=== PATIENT | male | born 1950 | race Caucasian/White ===

== ENCOUNTER 2016-10-12 06:01 | Emergency (ER) | payer OTHER, MEDICAID ==
[~2016-10-12] VITALS: Ht 149.9 cm; Wt 60.0 kg
[2016-10-12] MEDS ORDERED: SODIUM CHLORIDE 0.9% 1,000 ML IV ONE (07:05)
[2016-10-12] MEDS ORDERED: DILTIAZEM HCL 60MG TABLET PO ONE (07:15)
[2016-10-12] MEDS ORDERED: DILTIAZEM HCL 5MG/ML 5ML VIAL IV PRN (07:15)
[2016-10-12 07:30] LABS: BASOPHILS % 0.8 % (0.0-2.0); EOSINOPHILS % 2.6 % (0.0-5.0); HEMATOCRIT. 45.5 % (42.0-52.0); HEMOGLOBIN. 15.8 g/dL (14.0-18.0); LYMPHOCYTES % 25.3 % (20.0-50.0); MEAN CORPUSCULAR HEMOGLOBIN 31.9 pg (28.0-32.0); MONOCYTES % 13.8 % (2.0-8.0); NEUTROPHILS % 57.5 % (40.0-76.0); PLATELET 245 x1000/uL (130-400); RED BLOOD CELL COUNT 4.95 mill/uL (4.7-6.1); RED CELL DISTRIBUTION WIDTH 14.5 % (11.6-14.6)
[2016-10-12 07:47] LABS: CARBON DIOXIDE 24 mEq/L (21-32); CHLORIDE 97 mEq/L (98-107); ETHANOL BLOOD < 10 mg/dL
[2016-10-12 07:57] LABS: TROPONIN I < 0.02 ng/mL (0.00-0.04)
[2016-10-12 08:06] LABS: INR 1.1; PROTHROMBIN TIME 11.2 sec
[2016-10-12 10:28] VITALS: BP 128/67
== END 2016-10-12 10:45 | disposition home or self-care (01) ==
LOC: ER 06:01
DX: I48.91 Unspecified atrial fibrillation (principal); E78.00 Pure hypercholesterolemia, unspecified; I10 Essential (primary) hypertension
CPT/HCPCS: 36415; 71010; 80053; 83880; 84484; 85025; 85610; 93005; 96361; 96374; 99285; G0482; J3490; J7030

== ENCOUNTER 2017-01-15 16:17 | Emergency (ER) | payer OTHER, MEDICAID ==
[~2017-01-15] VITALS: Ht 149.9 cm; Wt 64.0 kg
[2017-01-15 16:22] VITALS: BP 172/96
== END 2017-01-15 18:29 | disposition left against medical advice (07) ==
LOC: ER 16:17
DX: R42 Dizziness and giddiness (principal); I10 Essential (primary) hypertension; Z53.21 Procedure and treatment not carried out due to patient leaving prior to being seen by health care provider